=== PATIENT | male | born 1945 | race Caucasian/White ===

== ENCOUNTER 2018-11-11 15:22 | Emergency (ER) | payer MEDICARE ==
--- OUTSIDE RECORDS SUMMARY | 2018-11-11 15:32 | XMS REPORT | Summary of Care ---
:1945 Author Organization [facility] Address [address] [place] [address] Care Team Providers Name Role Phone Stated, Not Primary Care Provider Unavailable Reason for Visit Reason Comments Follow Up Left shoulder pain. Patient states his left shoulder is doing good. Patient went to PT three times and did well. Encounter Details Date Type Department Care Team Description 10/15/2018 Office Visit [facility] - Alicia Rust, Rotator cuff syndrome [place] RPA-C of left shoulder [address] [facility] (Primary Dx) [address] [place], [place] [id number] [place] [id number] [phone] Allergies No Known Allergiesdocumented as of this encounter (statuses as of 10/15/2018) Medications Medication Sig Dispensed Refills Start Date End Date Status Tamsulosin HCl (FLOMAX) Take 0.4 mg by 0 Active 0.4 MG Oral Cap mouth DAILY. Esomeprazole Magnesium Take by mouth. 0 Active (NEXIUM PO) Multiple Vitamin (DAILY Take by mouth. 0 Active VITAMIN PO) documented as of this encounter (statuses as of 10/15/2018) Active Problems Problem Noted Date Rotator cuff syndrome of left shoulder 10/15/2018 documented as of this encounter (statuses as of 10/15/2018) Social History Tobacco Use Types Packs/Day Years Used Date Never Smoker Smokeless Tobacco: Never Used Sex Assigned at Date Recorded Not on file Job Start Date Occupation Industry Not on file Not on file Not on file Travel History Travel Start Travel End No recent travel history available. documented as of this encounter Last Filed Vital Signs Vital Sign Reading Time Taken Comments Blood Pressure 122/70 10/15/2018 8:36 AM EDT Pulse 48 10/15/2018 8:36 AM EDT Temperature - - Respiratory Rate - - Oxygen Saturation - - Inhaled Oxygen Concentration - - Weight 79.4 kg (175 lb) 10/15/2018 8:36 AM EDT Height 177.8 cm (5' 10") 10/15/2018 8:36 AM EDT Body Mass Index 25.11 10/15/2018 8:36 AM EDT documented in this encounter Progress Notes Alicia Rust RPA-C - 10/15/2018 9:00 AM EDT Patient: Yonatan Parra : 1945 Date of Service: 10/15/2018 Chief Complaint Patient presents with Follow Up Left shoulder pain. Patient states his left shoulder is doing good. Patient went to PT three timesand did well. HPI: Yonatan Parra is a 73-y.o. male who is here for follow up left shoulder Pain. Had aninjection on his last visit by Dr. Burgess and went to physical therapy. States shoulder fells much better. No pain and full range of motion. Doing all of his activities with no complaints. Physical Exam: Shoulder: Range of motion of the left shoulder demonstrates Forward elevation to 180 abduction 180 . There is not crepitus throughout range of motion. There is not pain at extremes of motion. Patient is not tender over the anterior lateral aspect of the left shoulder. Neurological: Sensation is intact to the hand. Vascular: Radial pulse is present. Hand swelling of the left absent. Skin condition to the left upper extremity is unremarkable and intact. Impression: ICD-9-CM ICD-10-CM 1. Rotator cuff syndrome of left shoulder 726.10 M75.102 Plan: The diagnosis was discussed with the patient. Will continue his home exercise program and follow up as needed. Author: ADRIAN Paulino 10/15/2018 08:54 documented in this encounter Plan of Treatment Health Maintenance Due Date Last Done Comments MEDICARE ANNUAL WELLNESS VISIT 1945 DEPRESSION SCREENING 1957 HIV SCREENING 1960 LIPID DISORDER SCREENING 08/18/1963 HEPATITIS C SCREENING 1985 COLONOSCOPY SCREENING 08/18/1995 ZOSTER IMMUNIZATION SERIES (1 of 2) 08/18/1995 FALL RISK ASSESSMENT 2010 PNEUMOCOCCAL 65+YRS (1 of 2 - 2010 PCV13) INFLUENZA VACCINE (#1) 2018 HPV IMMUNIZATION SERIES Aged Out No longer eligible based on patient's age to complete this topic MENINGOCOCCAL VACCINE IMM Aged Out No longer eligible based on patient's age to complete this topic documented as of this encounter Results Not on filedocumented in this encounter Visit Diagnoses Diagnosis Rotator cuff syndrome of left shoulder - Primary Disorders of bursae and tendons in shoulder region, unspecified documented in this encounter Insurance Payer Benefit Plan / Subscriber ID Effective Dates Phone Address Type Group MEDICARE MEDICARE PART A xxxxxxxxxxx 2010-Present Medicare & B [facility] xxxxxxxxxxx 2018-Present [facility] OPTIONS documented as of this encounter
[2018-11-11 15:45] VITALS: BP 122/82
--- NOTE | 2018-11-11 16:14 | UC ---
Headache HPI - HPI Summary HPI Summary: 73 yo male with concerns that he may have lyme disease is currently being treated for LD grandson was treated for LD [place] "all [place] time" He has has multiple tick bites bitemporal CASTRO at night x months joint pains x mos no f/c no rash no swollen joints his worse joint pain is the left shoulder for which he sees Dr. Burgess - History Of Current Complaint Chief Complaint: UCGeneralIllness Stated Complaint: STIFF JOINTS,CASTRO Time Seen by Provider: 11/11/18 15:56 Hx Obtained From: Patient Onset/Duration: Sudden Onset, Lasting Weeks Onset Of Symptoms: Gradual Initially Headache Was: Mild Currently Pain Is: Current Pain Scale(0-10)= - 0 Pain Intensity: 8 - left shoulder at its worse Pain Scale Used: 0-10 Numeric Timing: Intermittent, Lasting:, Hours Character: Dull Location of Headache: Diffuse Aggravating Factor(s): Other - occurs at night Allevating Factor(s): Other (Noted In Comments) - spontaneously resolves Associated Signs And Symptoms: Positive: Negative - Allergies/Home Medications Allergies/Adverse Reactions: Allergies Allergy/AdvReac Type Severity Reaction Status Date / Time No Known Allergies Allergy Verified 11/11/18 15:34 Home Medications: Home Medications Esomeprazole Magnesium [Nexium 24Hr] 20 mg PO DAILY 11/11/18 [History Confirmed 11/11/18] Multivitamin [One-Daily Multi-Vitamin] 1 each PO DAILY 11/11/18 [History Confirmed 11/11/18] Tamsulosin CAP* [Flomax CAP*] 0.4 mg PO DAILY 11/11/18 [History Confirmed ] PMH/Surg Hx/FS Hx/Imm Hx Previously Healthy: Yes - Surgical History Surgical History: Yes Surgery Procedure, Year, and Place: HERNIA REPAIR - Family History Known Family History: Positive: Hypertension - Social History Alcohol Use: Occasionally Substance Use Type: None Smoking Status (MU): Never Smoked Tobacco Review of Systems All Other Systems Reviewed And Are Negative: Yes Constitutional: Positive: Negative Skin: Positive: Negative Eyes: Positive: Negative ENT: Positive: Negative Respiratory: Positive: Negative Cardiovascular: Positive: Negative Gastrointestinal: Positive: Negative Genitourinary: Positive: Negative Motor: Positive: Negative Neurovascular: Positive: Negative Musculoskeletal: Positive: Arthralgia - left shoulder >>>kness, no hip pain Neurological: Positive: Headache Psychological: Positive: Negative Physical Exam Triage Information Reviewed: Yes Appearance: Well-Appearing, No Pain Distress, Well-Nourished Vital Signs: Initial Vital Signs Temp 97.7 F 11/11/18 15:37 Pulse 84 11/11/18 15:37 Resp 18 11/11/18 15:37 BP 122/82 11/11/18 15:37 Pulse Ox 96 11/11/18 15:37 Vital Signs Reviewed: Yes Eyes: Positive: Conjunctiva Clear ENT: Positive: Uvula midline. Negative: Hearing grossly normal, Nasal congestion, Nasal drainage, Tonsillar swelling, Tonsillar exudate, Trismus, Muffled voice, Hoarse voice, Dental tenderness, Sinus tenderness Dental: Negative: Abscess @ Neck: Positive: Supple, Nontender, No Lymphadenopathy Respiratory: Positive: Lungs clear, Normal breath sounds, No respiratory distress, No accessory muscle use Cardiovascular: Positive: RRR, No Murmur Musculoskeletal: Positive: ROM Intact, No Edema Neurological: Positive: Alert Psychological Exam: Normal Skin Exam: Normal Headache Course/Dx - Differential Dx/Diagnosis Provider Diagnosis: Tick bites, Headache Discharge ED - Sign-Out/Discharge Documenting (check all that apply): Patient Departure All imaging exams completed and their final reports reviewed: No Studies - Discharge Plan Condition: Stable Disposition: HOME Patient Education Materials: Acute Headache (ED), Tick Bite (ED) Referrals: Alban Cottrell MD [Primary Care Provider] - 1 Week Additional Instructions: blood work for lyme disease pending blood count and sed rate pending I suggest you see your MD in the next week or so for followup - Billing Disposition and Condition Condition: STABLE Disposition: Home
[2018-11-12 12:08] LABS: Hematocrit 48 % (42-52); Hemoglobin 16.5 g/dL (14.0-18.0); Mean Corpuscular HGB Conc 34 g/dL (31-36); Mean Corpuscular Hemoglobin 32 pg (27-31); Mean Corpuscular Volume 93 fL (80-94); Mean Platelet Volume 7.9 fL (7.4-10.4); Platelet Count 240 10^3/uL (150-450); Red Blood Count 5.16 10^6 /uL (4.18-5.48); Red Cell Distribution Width 13 % (10-15)
[2018-11-12 14:12] LABS: ABS Basophils 0.1 10^3/ul (0-0.2); ABS Lymphocytes 7.3 10^3/ul (1.0-4.8); ABS Monocytes 0.8 10^3/ul (0-0.8); ABS Neutrophils 8.7 10^3/ul (1.5-7.7); Eosinophil % 0.2 %; Lymphocyte % 43.1 %; Nucleated Red Blood Cells % 0.2
[2018-11-12 15:50] LABS: Erythrocyte Sed Rate 0 mm/Hr (0-19)
--- NOTE | 2018-11-13 07:47 | UC ---
- Progress Note Progress Note: WBCs elevated at 17.0 w/ left shift. came in w/ CASTRO and concern for lyme disease. -needs to be seen in ER tody for f/u as WBC elevateion is significant. no source indicated per note. -? cough, dysuria, n/v/d/abd pain? Course/Dx - Diagnoses Provider Diagnoses: Tick bites, Headache Discharge ED - Sign-Out/Discharge Documenting (check all that apply): Post-Discharge Follow Up All imaging exams completed and their final reports reviewed: No Studies - Discharge Plan Condition: Stable Disposition: HOME Patient Education Materials: Tick Bite (ED), Acute Headache (ED) Referrals: Alban Cottrell MD [Primary Care Provider] - 1 Week Additional Instructions: blood work for lyme disease pending blood count and sed rate pending I suggest you see your MD in the next week or so for followup - Billing Disposition and Condition Condition: STABLE Disposition: Home
== END 2018-11-11 16:27 | disposition home or self-care (01) ==
LOC: UCCORT 15:22
DX: T14.8XXA Other injury of unspecified body region, initial encounter (principal); W57.XXXA Bitten or stung by nonvenomous insect and other nonvenomous arthropods, initial encounter; Y92.821 Forest as the place of occurrence of the external cause; R51 Headache
CPT/HCPCS: 36415; 85025; 85060; 85652; 86618; 99211; G0463